=== PATIENT | female | born 1970 | race Caucasian/White ===

== ENCOUNTER → 2018-11-19 | Outpatient (CLI) | payer BC ==
--- NOTE | 2018-11-19 09:59 | KCIC ---
Examination: MRI of the right knee without contrast HISTORY: History of fall 2 months back, right knee pain, instability COMPARISON: None available TECHNIQUE: Multiplanar, multisequence MR imaging of the right knee were performed without contrast. FINDINGS: The anterior cruciate ligament, posterior cruciate ligament appear intact. There is blunting of the posterior horn of the medial meniscus likely tear of the medial meniscus. The lateral meniscus appears intact. The medial collateral ligament is intact. The lateral collateral ligamentous complex including the fibular collateral ligament, biceps femoris tendon, popliteus tendon appear intact. The medial retinaculum, lateral retinaculum appear intact. Deep fissuring of cartilage identified in the medial, patellofemoral compartments. Small knee joint effusion is identified. There is mild superficial fraying of cartilage identified in the lateral compartment. Mild joint space loss identified in the medial, lateral, patellofemoral compartments. The extensor mechanism is intact. IMPRESSION: 1. Tears of the posterior horn the medial meniscus. 2. Grade II chondromalacia medial, patellofemoral compartments. 3. Small knee joint effusion. Electronically signed by: René Jane MD (11/19/2018 9:55 AM) [id number]
== END | disposition home or self-care (01) ==
LOC: KCIC MRI 07:35
PROVIDERS: ATTEND Family Medicine
DX: S83.241A Other tear of medial meniscus, current injury, right knee, initial encounter (principal); M22.41 Chondromalacia patellae, right knee; M25.461 Effusion, right knee; X58.XXXA Exposure to other specified factors, initial encounter; Y93.89 Activity, other specified; Y92.89 Other specified places as the place of occurrence of the external cause; Y99.8 Other external cause status
CPT/HCPCS: 73721